=== PATIENT | female | born 1965 | race Hispanic/Latino ===

== ENCOUNTER 2021-06-29 21:58 | Emergency (ER) | payer MEDICARE ==
[~2021-06-29] VITALS: Ht 152.4 cm; Wt 104.3 kg
[2021-06-29 22:37] VITALS: BP 128/63
[2021-06-30] MEDS ORDERED: SOLU-MEDROL 125MG VIAL IM ONE (01:00)
[2021-06-30] MEDS ORDERED: MORPHINE 4 MG SYG IM ONE (01:00)
[2021-06-30] MEDS ORDERED: LIDOCAINE 5% TOPICAL PATCH TP ONE ×2 (03:00→03:30)
[2021-06-30 03:31] LABS: CREATININE 3.1 mg/dL (0.5-1.5); POTASSIUM 4.6 mmol/L (3.5-5.1)
[2021-06-30] MEDS ORDERED: PRED20TA3 PO (04:47)
[2021-06-30] MEDS ORDERED: LIDOP TD (04:47)
== END 2021-06-30 05:10 | disposition home or self-care (01) ==
LOC: EDH 21:58
DX: M75.91 Shoulder lesion, unspecified, right shoulder (principal); E11.65 Type 2 diabetes mellitus with hyperglycemia; E11.22 Type 2 diabetes mellitus with diabetic chronic kidney disease; N18.9 Chronic kidney disease, unspecified; I25.10 Atherosclerotic heart disease of native coronary artery without angina pectoris; Z79.52 Long term (current) use of systemic steroids; Z98.890 Other specified postprocedural states
CPT/HCPCS: 36415; 80048; 96372; J2270; J2930